=== PATIENT | male | born 1970 | race Caucasian/White ===

== ENCOUNTER 2018-03-14 02:10 | Emergency (ER) | payer OTHER ==
[~2018-03-14] VITALS: Ht 172.7 cm; Wt 70.3 kg
[2018-03-14 02:21] VITALS: BP 114/72
[2018-03-14] MEDS ORDERED: DIPHENOXYLATE HCL/ATROP SULF 1 UDTAB TABLET ONE (03:26)
[2018-03-14] MEDS: DIPHENOXYLATE HCL/ATROP SULF 1 UDTAB TABLET PO ONE (03:39)
== END 2018-03-14 03:41 | disposition home or self-care (01) ==
LOC: ER 02:12
DX: R19.7 Diarrhea, unspecified (principal); Z87.19 Personal history of other diseases of the digestive system
CPT/HCPCS: A4606; Z7610